=== PATIENT | male | born 1970 | race Caucasian/White ===

== ENCOUNTER 2017-03-16 07:26 | Emergency (ER) ==
[2017-03-16 07:33] VITALS: BP 154/86; TEMP 98.8; BMI 25.8
[2017-03-16] MEDS ORDERED: LIDOCAINE 1 % AMP 5 ML (SUTURES) SUBCUT STA (07:39)
[2017-03-16] MEDS ORDERED: TETANUS DIPHTHERIA TOXOIDS IM ONE (07:39)
--- NOTE | 2017-03-16 07:55 | ED.PDOC ---
General ED Provider: Dr. MICHELLE HUSTON-ER Chief Complaint: Laceration Stated Complaint: i cut my thumb Time Seen by Physician: 07:30 Mode of Arrival: Walk-In Information Source: Patient Exam Limitations: No limitations Primary Care Provider: JANET MONTANO Nursing and Triage Documentation Reviewed and Agree: Yes Skin Complaint Exam - Laceration/Abrasion/Hand Complaint/Exam Location of Injury: Left, Hand Mechanism of Injury: Laceration Onset/Duration: one hour Symptoms Are: Still present Initial Severity: Mild Current Severity: Mild Aggravating: Movement Alleviating: Compression Related History: Reports: Right hand dominant, Occupational injury Differential Diagnoses: Laceration Review of Systems - Review Of Systems Constitutional: Reports: No symptoms Eyes: Reports: No symptoms Ears, Nose, Mouth, Throat: Reports: No symptoms Respiratory: Reports: No symptoms Cardiac: Reports: No symptoms GI: Reports: No symptoms : Reports: No symptoms Musculoskeletal: Reports: No symptoms Skin: Reports: No symptoms Neurological: Reports: No symptoms Endocrine: Reports: No symptoms Hematologic/Lymphatic: Reports: No symptoms All Other Systems: Reviewed and Negative Past Medical History - Past Medical History Previously Healthy: Yes Endocrine: Reports: Unknown Cardiovascular: Reports: Unknown Respiratory: Reports: Unknown Hematological: Reports: Unknown Gastrointestinal: Reports: Unknown Genitourinary: Reports: Unknown Neuro/Psych: Reports: Unknown Musculoskeletal: Reports: Unknown Cancer: Reports: Unknown - Surgical History General Surgical History: Reports: Unknown - Family History Family History: Reports: Unknown - Social History Smoking Status: Never smoker Hx Substance Use: No Alcohol Screening: None Lives: With family - Immunizations Tetanus Shot up to Date: (not sure) Physical Exam - Physical Exam Appearance: Well-appearing, No pain distress, Well-nourished Pain Distress: Mild Eyes: JEFF, EOMI, Conjunctiva clear ENT: Ears normal, Nose normal, Oropharynx normal Neck: Supple Respiratory: Airway patent, Breath sounds clear, Breath sounds equal, Respirations nonlabored Cardiovascular: RRR, Pulses normal, No rub, No murmur GI/: Soft, Nontender, No masses, Bowel sounds normal, No Organomegaly Musculoskeletal: Normal strength, ROM intact, No edema, No calf tenderness Skin: Warm, Dry, Normal color Neurological: Sensation intact, Motor intact, Reflexes intact, Cranial nerves intact, Alert, Oriented Psychiatric: Affect appropriate, Mood appropriate Procedures - Laceration/Wound Repair No standard instances Wound Description: Linear Wound Length (cm): 1.5cm webspace left thumb and index finger Wound Explored: Clean Wound Irrigated: Yes Wound Prep: Saline, Hibiclens Anesthesia: Lidocaine Wound Repaired With: Sutures Suture Size and Type: 3.0 prolene Number of Sutures: 3 Layer Closure?: No Sterile Dressing Applied?: Yes Splint Applied?: No Sling Applied?: No Critical Care Note - Critical Care Note Total Time (mins): 0 Course - Course Orders, Labs, Meds: Orders Category Date Time Status Lidocaine HCl/Pf [Lidocaine 1 % Amp 5 ml (Sutures)] MEDS 03/16/17 07:39 Discontinued 5 ml SUBCUT ONCE STA Tetanus, Diphtheria Tox,Adult [Tetanus Diphtheria MEDS 03/16/17 07:39 Discontinued Toxoids] 0.5 ml IM .ONCE ONE Medications Discontinued Medications Generic Name Dose Route Start Last Admin Trade Name Freq PRN Reason Stop Dose Admin Lidocaine HCl 5 ml 03/16/17 07:39 03/16/17 07:45 Lidocaine 1 % Amp 5 Ml (Sutures) SUBCUT 03/16/17 07:40 5 ml ONCE STA Administration Tetanus/Diphtheria Toxoids 0.5 ml 03/16/17 07:39 Tetanus Diphtheria Toxoids IM 03/16/17 07:40 .ONCE ONE Vital Signs: Temp Pulse Resp BP Pulse Ox 03/16/17 07:26 98.8 F 73 16 154/86 H 98 Departure - Departure Time of Disposition: 07:57 Disposition: HOME SELF-CARE Discharge Problem: Laceration - injury Instructions: Laceration (ED), Care For Your Stitches (ED) Condition: Good Pt referred to PMD for follow-up: Yes Additional Instructions: routine wound care--sutures out in 7 days--may return to work with no use of LUE x 1 week Allergies/Adverse Reactions: Allergies No Known Allergies Allergy (Unverified 03/16/17 07:34) Home Medications: Ambulatory Orders Atorvastatin Calcium [Lipitor] 10 mg PO DAILY 03/16/17 Lamotrigine [Lamictal] 200 mg PO DAILY 03/16/17 Paroxetine HCl [Paxil] 60 mg PO DAILY 03/16/17 Disposition Discussed With: Patient, 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
[2017-03-16 09:38] LABS: COCAIN SCREEN,URINE NEGATIVE (NEGATIVE)
== END 2017-03-16 09:35 | disposition home or self-care (01) ==
LOC: ED 07:26
DX: S61.412A Laceration without foreign body of left hand, initial encounter (principal); W45.8XXA Other foreign body or object entering through skin, initial encounter
CPT/HCPCS: 36415; 80306; 80307; 90471; 99283

== ENCOUNTER 2017-06-09 20:57 | Outpatient (CLI) | END 2017-06-09 20:58 | disposition short-term general hospital (02) | LOC: AMBL 20:57 | PROVIDERS: ATTEND Internal Medicine Geriatric Medicine | DX: R10.9 Unspecified abdominal pain (principal); F10.20 Alcohol dependence, uncomplicated; R55 Syncope and collapse ==